=== PATIENT | female | born 1945 | race Caucasian/White ===

== ENCOUNTER 2020-03-05 14:37 | Inpatient (IN) | payer OTHER ==
[2020-03-07] MEDS ORDERED: hydrALAZINE 20MG/ML 1ML VIAL (J0360 PER 20MG) ONE (13:46)
[2020-03-07] MEDS ORDERED: **hydrALAZINE HCL** 25 MG TAB ONE (13:46)
[2020-03-07] MEDS ORDERED: hydrALAZINE 20MG/ML 1ML VIAL (J0360 PER 20MG) As Ordered ONE (13:46)
[2020-03-07] MEDS ORDERED: **hydrALAZINE HCL** 25 MG TAB As Ordered ONE (14:33)
[2020-03-07] MEDS ORDERED: FUROSEMIDE 20MG/2ML VIAL (J1940) ONE (17:19)
[2020-03-07] MEDS ORDERED: amLODIPine 5 MG TAB ONE (17:19)
[2020-03-07] MEDS ORDERED: FUROSEMIDE 20MG/2ML VIAL (J1940) As Ordered ONE (17:19)
[2020-03-07] MEDS ORDERED: amLODIPine 5 MG TAB As Ordered ONE (17:20)
[2020-03-07] MEDS ORDERED: ACETAMINOPHEN 325 MG TAB As Ordered ONE (23:56)
[2020-03-07] MEDS ORDERED: SIMVASTATIN 10 MG TAB ONE (23:56)
[2020-03-07] MEDS ORDERED: **hydrALAZINE** 10 MG TAB As Ordered ONE (23:56)
[2020-03-07] MEDS ORDERED: ACETAMINOPHEN 325 MG TAB ONE (23:56)
[2020-03-07] MEDS ORDERED: **hydrALAZINE** 10 MG TAB ONE (23:56)
[2020-03-07] MEDS ORDERED: SIMVASTATIN 10 MG TAB As Ordered ONE (23:56)
[2020-03-08] MEDS ORDERED: lisinopriL 5 MG TAB ONE (02:36)
[2020-03-08] MEDS ORDERED: ACETAMINOPHEN 650MG ER TAB (TYLENOL ARTHRITIS) ONE (02:36)
[2020-03-08] MEDS ORDERED: RAMELTEON 8 MG TAB (ROZEREM) ONE ×2 (02:36→22:24)
[2020-03-08] MEDS ORDERED: lisinopriL 5 MG TAB As Ordered ONE (02:36)
[2020-03-08] MEDS ORDERED: ACETAMINOPHEN 650MG ER TAB (TYLENOL ARTHRITIS) As Ordered ONE (02:36)
[2020-03-08] MEDS ORDERED: RAMELTEON 8 MG TAB (ROZEREM) As Ordered ONE ×2 (02:43→22:26)
[2020-03-08] MEDS ORDERED: hydroCHLOROthiazide 25 MG TAB As Ordered ONE (06:01)
[2020-03-08] MEDS ORDERED: amLODIPine 10 MG TAB As Ordered ONE (06:01)
[2020-03-08] MEDS ORDERED: **hydrALAZINE HCL** 25 MG TAB ONE (06:01)
[2020-03-08] MEDS ORDERED: amLODIPine 10 MG TAB ONE (06:01)
[2020-03-08] MEDS ORDERED: OLMESARTAN MEDOXOMIL 20 MG TAB (BENICAR) ONE (09:00)
[2020-03-08] MEDS ORDERED: OMEPRAZOLE 20 MG CAP As Ordered ONE (09:09)
[2020-03-08] MEDS ORDERED: OMEPRAZOLE 20 MG CAP ONE (09:09)
[2020-03-08] MEDS ORDERED: ACETAMINOPHEN 325 MG TAB ONE ×2 (09:09→12:39)
[2020-03-08] MEDS ORDERED: ACETAMINOPHEN 325 MG TAB As Ordered ONE ×2 (09:09→12:39)
[2020-03-08] MEDS ORDERED: ENOXAPARIN 40MG/0.4ML SYRINGE (J1650 PER 10MG) ONE (09:09)
[2020-03-08] MEDS ORDERED: ENOXAPARIN 40MG/0.4ML SYRINGE (J1650 PER 10MG) As Ordered ONE (09:09)
[2020-03-08] MEDS ORDERED: SIMVASTATIN 10 MG TAB ONE (22:24)
[2020-03-08] MEDS ORDERED: SIMVASTATIN 10 MG TAB As Ordered ONE (22:24)
[2020-03-09] MEDS ORDERED: **hydrALAZINE** 10 MG TAB As Ordered ONE (05:52)
[2020-03-09] MEDS ORDERED: **hydrALAZINE** 10 MG TAB ONE (05:52)
[2020-03-09] MEDS ORDERED: ENOXAPARIN 40MG/0.4ML SYRINGE (J1650 PER 10MG) ONE (08:38)
[2020-03-09] MEDS ORDERED: **hydrALAZINE HCL** 25 MG TAB ONE (08:38)
[2020-03-09] MEDS ORDERED: hydroCHLOROthiazide 25 MG TAB As Ordered ONE (08:38)
[2020-03-09] MEDS ORDERED: amLODIPine 10 MG TAB As Ordered ONE (08:38)
[2020-03-09] MEDS ORDERED: amLODIPine 10 MG TAB ONE (08:38)
[2020-03-09] MEDS ORDERED: OMEPRAZOLE 20 MG CAP As Ordered ONE (08:38)
[2020-03-09] MEDS ORDERED: OMEPRAZOLE 20 MG CAP ONE (08:38)
[2020-03-09] MEDS ORDERED: ENOXAPARIN 40MG/0.4ML SYRINGE (J1650 PER 10MG) As Ordered ONE (08:38)
[2020-03-09] MEDS ORDERED: OLMESARTAN MEDOXOMIL 20 MG TAB (BENICAR) ONE (09:00)
[2020-04-22 13:38] LABS: INR 0.97; PARTIAL THROMBOPLASTIN TIME 27.8 SECONDS (25.0-38.4); PROTHROMBIN TIME 13.1 SECONDS (11.8-14.0)
[2020-04-22 14:05] LABS: APPEARANCE, URINE CLEAR (CLEAR); BACTERIA, URINE AUTO NEGATIVE (NEGATIVE); BILIRUBIN, URINE AUTO NEGATIVE (NEGATIVE); BLOOD, URINE BLOOD NEGATIVE (NEGATIVE); COLOR, URINE STRAW (YELLOW); GLUCOSE, URINE (UA) AUTO NEGATIVE (NEGATIVE); KETONE, URINE AUTO TRACE mg/dL (NEGATIVE); LEUKOCYTE ESTERASE, URINE AUTO 1+ (NEGATIVE); MUCUS, URINE SMALL (NEGATIVE); NITRITE, URINE AUTO NEGATIVE (NEGATIVE); PROTEIN, URINE AUTO NEGATIVE (NEGATIVE); RBC, URINE AUTO 3 /HPF (0-3); SPECIFIC GRAVITY URINE AUTO 1.009 (1.002-1.035); SQUAMOUS EPITHELIAL CELL UR AU 0 /HPF (0-6); UROBILINOGEN, URINE AUTO 0.2 mg/dL (0.0-2.0); WBC, URINE AUTO 1 /HPF (0-3)
--- NOTE | 2020-04-22 14:23 | ECGEPIP ---
SINUS RHYTHM NORMAL ECG NONSPECIFIC ST & T-WAVE ABNORMALITY NO OLD AVAILABLE SEE SCANNED DOWNTIME REPORT MTDD
[2020-04-22 18:01] LABS: BASO % 0.4 % (0.0-1.0); EOS # 0.1 10^3/uL (0.0-0.5); EOS % 1.8 % (0.0-3.0); HEMATOCRIT 37.4 % (36.0-47.0); HEMOGLOBIN 11.6 g/dl (12.0-15.5); LYMPH # 1.4 10^3/uL (1.5-5.0); MEAN CORPUSCULAR HEMOGLOBIN 28.2 pg (27.0-33.0); MONO # 0.5 10^3/uL (0.0-0.8); MONO % 9.9 % (0.0-5.0); NEUTROPHILS % 59.7 % (36.0-66.0); PLATELET COUNT, AUTOMATED 190 10^3/uL (150-450); RED BLOOD COUNT 4.11 10^6/uL (4.00-5.40)
[2020-04-29 01:30] LABS: HEMATOCRIT 35.4 % (36.0-47.0); MEAN CORPUSCULAR HEMOGLOBIN 27.8 pg (27.0-33.0); MEAN CORPUSCULAR HGB CONC 31.1 g/dl (32.0-36.5); MEAN CORPUSCULAR VOLUME 89.6 fl (80.0-96.0); PLATELET COUNT, AUTOMATED 188 10^3/uL (150-450); RED BLOOD COUNT 3.95 10^6/uL (4.00-5.40); WHITE BLOOD COUNT 4.8 10^3/uL (4.0-10.0)
[2020-05-19 16:12] LABS: ALBUMIN 3.9 GM/DL (3.2-5.2); ALT/SGPT 30 U/L (12-78); BILIRUBIN,DIRECT 0.2 MG/DL (0.0-0.2); BILIRUBIN,TOTAL 0.6 MG/DL (0.2-1.0); BLOOD UREA NITROGEN 9 MG/DL (7-18); CALCIUM LEVEL 9.1 MG/DL (8.8-10.2); CARBON DIOXIDE LEVEL 26 MEQ/L (21-32); CHLORIDE LEVEL 105 MEQ/L (98-107); CK-MB VALUE MASS 4.3 NG/ML (<3.6); CPK CREATINE PHOSPHOKINASE 179 U/L (26-192); CREATININE FOR GFR 0.83 MG/DL (0.55-1.30); FREE T4 1.38 NG/DL (0.76-1.46); GLOMERULAR FILTRATION RATE > 60.0 (>39); GLUCOSE, FASTING 89 MG/DL (70-100); LIPASE 92 U/L (73-393); NT-PRO BNP 563 PG/ML (<450); POTASSIUM SERUM 3.9 MEQ/L (3.5-5.1); SODIUM LEVEL 139 MEQ/L (136-145); TOTAL PROTEIN 7.1 GM/DL (6.4-8.2); TROPONIN I < 0.02 NG/ML (< 0.10)
[2020-06-01 10:03] LABS: BLOOD UREA NITROGEN 10 MG/DL (7-18); CALCIUM LEVEL 9.1 MG/DL (8.8-10.2); CARBON DIOXIDE LEVEL 27 MEQ/L (21-32); CHLORIDE LEVEL 105 MEQ/L (98-107); CREATININE FOR GFR 0.78 MG/DL (0.55-1.30); GLOMERULAR FILTRATION RATE > 60.0 (>39); GLUCOSE, FASTING 96 MG/DL (70-100); POTASSIUM SERUM 3.9 MEQ/L (3.5-5.1); SODIUM LEVEL 139 MEQ/L (136-145)
== END 2020-03-09 10:36 | disposition home or self-care (01) | DRG 199 ==
LOC: M ED 14:37 → M MS5PR 03-07 12:50 → M ED 03-07 14:37
PROVIDERS: ADMIT Internal Medicine; ATTEND Internal Medicine
DX: I16.0 Hypertensive urgency (principal); E78.5 Hyperlipidemia, unspecified; I35.0 Nonrheumatic aortic (valve) stenosis; K21.9 Gastro-esophageal reflux disease without esophagitis; M19.90 Unspecified osteoarthritis, unspecified site; Z96.662 Presence of left artificial ankle joint; G31.84 Mild cognitive impairment of uncertain or unknown etiology; I10 Essential (primary) hypertension